=== PATIENT | female | born 1975 | race Caucasian/White ===

== ENCOUNTER 2017-12-04 11:31 | Outpatient (CLI) ==
--- NOTE | 2017-12-04 18:49 | DI ---
EXAM: Five views of the cervical spine HISTORY: Neck pain with prior anterior cervical fusion. COMPARISON: None FINDINGS: There is no acute compression fracture or subluxation. There is anterior fusion at C4 and C5 with vertebral body fusion at this level. There is no evidence of hardware fracture or loosening. There is straightening the cervical spine with minimal anterior disc osteophyte noted at C5-C6. Th e facets and posterior processes are normal. The neural foramen are patent. The odontoid process is unremarkable. IMPRESSION: 1. No acute abnormality or compression fracture of the cervical spine. 2. Anterior cervical fusion hardware at C5-C6 with no hardware fracture or lucency. 3. 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
== END 2017-12-04 11:32 | disposition home or self-care (01) ==
LOC: RAD 11:31
PROVIDERS: ATTEND Family Medicine
DX: M54.2 Cervicalgia (principal)

== ENCOUNTER 2018-02-04 11:00 | Outpatient (RCR) | END 2018-02-15 23:59 | PROVIDERS: ATTEND Nurse Practitioner | DX: M54.12 Radiculopathy, cervical region (principal); M54.2 Cervicalgia; M62.89 Other specified disorders of muscle ==